=== PATIENT | male | born 1985 | race Hispanic/Latino ===

== ENCOUNTER 2017-06-21 18:11 | Emergency (ER) | payer SELFPAY | END 2017-06-21 18:59 | disposition home or self-care (01) | LOC: BURERS 18:11 | DX: K92.1 Melena (principal); F17.210 Nicotine dependence, cigarettes, uncomplicated | CPT/HCPCS: 99284 ==

== ENCOUNTER → 2023-02-14 22:15 | Emergency (ER) | payer BC | END | disposition left against medical advice (07) | LOC: BURERS 22:15 | DX: Z53.21 Procedure and treatment not carried out due to patient leaving prior to being seen by health care provider (principal) ==

== ENCOUNTER 2023-04-17 22:34 | Emergency (ER) | payer BC, SELFPAY ==
[2023-04-17] MEDS ORDERED: Lidocaine Viscous Sol 2% 15 ml UD Cup ONE (22:53)
[2023-04-17] MEDS ORDERED: Mag-Al Plus 1200 MG/1200 MG/120 MG/30 ML UDCUP ONE (22:53)
== END 2023-04-17 23:03 | disposition home or self-care (01) ==
LOC: BURERS 22:34
DX: E11.65 Type 2 diabetes mellitus with hyperglycemia (principal); R10.13 Epigastric pain; R00.0 Tachycardia, unspecified
CPT/HCPCS: 36416; 99284

== ENCOUNTER 2023-08-02 22:13 | Emergency (ER) | payer BC, SELFPAY | END 2023-08-02 22:39 | disposition home or self-care (01) | LOC: BURERS 22:13 | DX: Z53.21 Procedure and treatment not carried out due to patient leaving prior to being seen by health care provider (principal) ==